=== PATIENT | female | born 1975 | race African-American/Black ===

== ENCOUNTER 2016-12-31 09:20 | Emergency (ER) | payer OTHER ==
[~2016-12-31] VITALS: Ht 162.6 cm; Wt 93.4 kg
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
[2016-12-31] MEDS ORDERED: IBUPROFEN600 M1 PO (12:00)
[2016-12-31 12:02] VITALS: BP 134/78
== END 2016-12-31 12:10 ==
LOC: ERH 09:20
DX: S80.11XA Contusion of right lower leg, initial encounter (principal); V47.5XXA Car driver injured in collision with fixed or stationary object in traffic accident, initial encounter
CPT/HCPCS: 73590-RT